=== PATIENT | male | born 1980 | race Caucasian/White ===

== ENCOUNTER 2019-05-13 11:54 | Day surgery (SDC) | payer BC, SELFPAY ==
[2019-05-13] VITALS (8 sets, daily range): BP systolic 100–138; BP diastolic 55–98; PULSE 67–84; RESP 18–20; TEMP 36.6–37.3; O2SAT 96–99
[2019-05-13] MEDS: sodium chloride 0.9% 1,000 ML 30 ML IV (13:20)
--- NOTE | 2019-05-13 14:39 | ANES.PREANE2 ---
Pre-Anesthetic Assessment Pre-Anesthetic Assessment: Height/Weight: Height 1.78 m Weight 73.028 kg Temp Pulse Resp BP Pulse Ox 98.6 F 80 18 100/73 98 05/13/19 12:57 05/13/19 12:57 05/13/19 12:57 05/13/19 12:57 05/13/19 12:57 Preop Diagnosis: Symptomatic hemorrhoids Proposed Procedure: Operation Date: 05/13/19 15:30 Proposed Procedures p Hemorroidectomy 24508/73021(Not Applicable) - Daniel Catherine MD s Exam Under Anesthesia(Not Applicable) - Daniel Catherine MD Familial anesthetic complications: No trouble with anesthesia Was Beta Viola taken within 24 hours: N/A Last intake: Intake Last Liquid Date 05/12/19 Last Liquid Time 22:30 Last Solid Date 05/10/19 Last Solid Time 18:00 Social: Social History: Tobacco Packs per day: 0.5 ppd Exam: Pre-Anes Outpt Exam: alert, oriented x 3, clear to auscultation bilaterally and regular rate & rhythm Airway: Cervical ROM: Other (gudino) MP: 3 Dentition: Chipped Pulmonary: Pulmonary: None reported CV/HEM: CV/HEM: None reported : : None reported Hepatic: Hepatic: None reported GI: GI: None reported Metabolic: Metabolic: None reported Musc/skel: Musc/skel: None reported Neuropsych: Neuropsych: None reported Anesthetic Plan: ASA status: 1 Anesthesia: General Risk of > 500 ml blood loss (7ml/kg in children): No Meds/Allergies Current Medications: Current Medications Generic Name Dose Route Start Last Admin Trade Name Freq PRN Reason Stop Dose Admin Sodium Chloride 1,000 mls @ 30 ml s/hr 05/13/19 12:45 05/13/19 13:20 Sodium Chloride 0.9% IV 05/14/19 12:44 30 mls/hr .Q24H CHELY Administration PFSH Anesthesia PFSH: Social History Smoking and tobacco status: current some day smoker Alcohol intake: current Alcohol intake frequency: few times a month Household members: family Marital status: Single Current occupational status: employed History of recent travel: No Data Anesthesia Cardiac Studies: No Data to Display
--- NOTE | 2019-05-13 16:06 | PM.HPUD ---
H&P update H&P Update: DATE OF SURGERY/PROCEDURE: 05/13/19 DATE H&P PERFORMED: 05/08/19 H&P UPDATE INFORMATION: H&P completed within last 30 days and No changes to prior documentation PREOP DIAGNOSIS: Symptomatic hemorrhoids PRIMARY INDICATION FOR PROCEDURE: The same PLANNED PROCEDURE: Operation Date: 05/13/19 15:30 Proposed Procedures p Hemorroidectomy 00203/72055(Not Applicable) - Daniel Catherine MD s Exam Under Anesthesia(Not Applicable) - Daniel Catherine MD Full H&P Medications/Allergies: Current Medications: Current Medications Generic Name Dose Route Start Last Admin Trade Name Freq PRN Reason Stop Dose Admin Sodium Chloride 1,000 mls @ 30 ml s/hr 05/13/19 12:45 05/13/19 13:20 Sodium Chloride 0.9% IV 05/14/19 12:44 30 mls/hr .Q24H CHELY Administration Perinent History: Family History: Family History (Updated 05/08/19 @ 13:05 by Viktoriya Hill LPN) Grandmother Cancer lung Grandfather Heart disease Denies family history of Anesthesia complication Bleeding disorder Social History: Social History Smoking and tobacco status: current some day smoker Alcohol intake: current Alcohol intake frequency: few times a month Household members: family Marital status: Single Current occupational status: employed History of recent travel: No
[2019-05-13] MEDS: piperacillin-tazobactam 3.375 GM in sodium chloride 0.9% (plus) 50 ML IV (16:13)
--- NOTE | 2019-05-13 16:50 | P.OP_ITS ---
Operative Report Date of procedure: May 13, 2019 Pre-op Diagnosis: Symptomatic hemorrhoids Post-op diagnosis: other (Left lower lateral and right upper lateral external hemorrhoids with element of thrombosis) Procedure Done: Examination under anesthesia and hemorrhoidectomy Bilateral pudendal nerve block Specimens removed/disposition: Left lower lateral and right upper lateral hemorrhoids Sales Office Manager[facility] Devante Farrell Circulating nurse Esmer Anesthesia: General (SENIOR DATA WAREHOUSE ARCHITECT Jocelyn LMA) Estimated blood loss (mL): 5 Condition: stable Disposition: same day Brief History: This is a pleasant 38 years old gentleman presented to my office with symptomatic hemorrhoids for quite some time, after thorough history physical examination and reviewing the chart I did mitochondrial disorders counselor the patient for examination under anesthesia and hemorrhoidectomy. Procedure: Patient was identified in the holding area and was taken back to the operating room, which was first placed in supine position got intubated by anesthesia, prophylactic IV antibiotics were given per protocol,Timeout was done verifying the patient's name/date of /planned procedure and destination after the procedure, all were in agreement. we placed the patient after that in the left lateral position were all pressure points were padded, Prep and drape was done thereafter under the usual sterile technique,started by pudendal nerve block bilaterally , injecting Exparel 15 ml each side , guided by the examining finger towards the ischial spine bilaterally, followed by that digital rectal examination showed no masses were appreciated or bleeding. Anoscope was then introduced I was able to identify the external hemorrhoid left lower lateral and Right upper lateral , I placed a wet 4 x 4 inside the anal canal to prevent stools from encroaching on the wound site, that was taken out at the end of the procedure. I did apply a hemostat at the origin of the hemorrhoidal tissue, I started by the left lower hemorrhoid first followed by the Right upper lateral,using the same technique which is dissecting it with harmonic scalpel device safeguarding the external anal sphincter after that I was able to deliver the specimens to the circulating nurse hemostasis was achieved,and running 2-0 chromic catgut suture was applied to approximate the edges of the hemorrhoidectomy sites, that was done after thorough irrigation of the wound with warm normal saline . At that point after removal of the 4 x 4'sx1, I applied a piece of Xeroform impregnated lidocaine 2% jelly at the site of the wound and a piece of Surgicel both were rolled up as a Cigar like and and 2-0 silk stitch was applied at the end that faces the exit of the anus as it will be easier to pull out later on, followed by 4 x 4 application and ABD.A surgical pants was then placed to hold the dressing in place. Count was completed at the end of the procedure, patient was then extubated and was taken to the recovery room in stable condition I was present for the whole entire procedure
== END 2019-05-13 17:56 | disposition home or self-care (01) ==
PROVIDERS: PCP Chiropractor Orthopedic; Visit Provider Surgery
PROC: (CPT 46250; principal; 2019-05-13 15:30)
PROC: (CPT 46250; 2019-05-13 15:30)
DX: K64.9 Unspecified hemorrhoids (principal); Z82.49 Family history of ischemic heart disease and other diseases of the circulatory system; F17.210 Nicotine dependence, cigarettes, uncomplicated
CPT/HCPCS: 46250; 12345; 88304; 96365; C9290; J0131; J1100; J2001; J2543; J2704; J3010; J7030

== ENCOUNTER → 2019-11-11 10:08 | Outpatient (BNVA) | payer BC, SELFPAY | PROVIDERS: PCP Chiropractor Orthopedic; Visit Provider Nurse Practitioner Family | DX: R63.4 Abnormal weight loss (principal) | CPT/HCPCS: 80053; 84443; 85025 ==

== ENCOUNTER → 2019-12-18 12:26 | Outpatient (BNVA) | payer BC, SELFPAY | PROVIDERS: PCP Chiropractor Orthopedic; Visit Provider Emergency Medicine | DX: Z20.828 Contact with and (suspected) exposure to other viral communicable diseases (principal) | CPT/HCPCS: 87635 ==